=== PATIENT | male | born 1955 | race Caucasian/White ===

== ENCOUNTER 2025-04-01 10:26 | Outpatient (CLI) | payer MEDICARE, SELFPAY ==
[2025-04-01 12:06] LABS: CRP < 3.00 mg/L (0.0-3.0)
[2025-04-07 12:52] LABS: Immunoglobulin A 287 mg/dL (61-437); Pancreatic Elastase, Fecal 13 (>200)
== END 2025-04-01 23:59 | disposition home or self-care (01) ==
PROVIDERS: PCP Family Medicine
DX: R10.9 Unspecified abdominal pain (principal); R19.7 Diarrhea, unspecified
CPT/HCPCS: 36415; 82653; 82784; 83516; 83993; 86003; 86005; 86038; 86140; 86225; 86255

== ENCOUNTER 2025-05-21 12:30 | Day surgery (SDC) | payer MEDICARE, SELFPAY ==
[2025-05-21] VITALS (8 sets, daily range): BP systolic 115–144; BP diastolic 79–92; PULSE 60–81; RESP 14–16; TEMP 36.4–36.9; O2SAT 98–100; BMI 23.7
[2025-05-21] MEDS: Lactated Ringers 1,000 ML 15 ML IV (12:54)
--- NOTE | 2025-05-21 13:07 | PCM.PRE.AN2 ---
ASA Classification* ASA Classification ASA Classification: 3 Assessment & Plan Anesthesia* Anesthesia Assessment Anesthesia Assessment: Discussed sedation and/or anesthesia options, risks, benefits, and alternatives with patient/parents/legal guardian/POA. Questions invited. The patient/parents/legal guardian/POA seems to understand and agrees to proceed with anesthesia plan. Reviewed the physical assessment, medical history, allergy history and patient home medications list prior to surgery/procedure/anesthetic and documented any changes. Performed airway and anesthesia risk assessments. 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 When Was Last Pacemaker Check QUESTION #4 FULL TEXT: You/Your Family Experience fever (hyperthermia) with Anesthesia Last Oral Intake Last Oral intake: Last Oral Intake NPO since 06:00 05/21/25 12:47 Meds taken in AM with sips of Yes 05/21/25 12:47 water? Meds patient instructed to take am of surgery PONV PONV - digital advertising specialist: PONV - digital advertising specialist Female No 05/19/25 13:19 HX of Motion Sickness No 05/19/25 13:19 HX of N/V After Surgery No 05/19/25 13:19 Non-Smoker Yes 05/19/25 13:19 Duration of Surgery greater No 05/19/25 13:19 than 60 minutes Number of Risk Factors 1 05/19/25 13:19 PONV Score Low Risk 05/19/25 13:19 Height & Weight Height & Weight: Anesthesia: Height & Weight Height 5 ft 10 in 05/21/25 12:47 Weight: 75 kg 05/21/25 12:47 Body Mass Index (BMI) 23.7 05/21/25 12:47 Respiratory Assessment Respiratory Assessment - digital advertising specialist: Respiratory Tract Infection Hx - digital advertising specialist Hx Respiratory Tract Infection No 05/19/25 13:19 STOP Sleep Apnea STOP Sleep Apnea - digital advertising specialist: STOP Sleep Apnea - digital advertising specialist Hx Hypertension Yes: CONTROLLED ON MED 05/19/25 13:19 Hx Sleep Apnea No 05/19/25 13:19 CPAP BIPAP Do you snore loudly (louder No 05/19/25 13:19 than talking or can be heard Do you often feel tired/ No 05/19/25 13:19 fatigued/ sleepy during daytime? Has anyone observed you stop No 05/19/25 13:19 breathing during sleep? STOP Results Negative 05/19/25 13:19 QUESTION #5 FULL TEXT : Do you snore loudly (louder than talking or can be heard through closed doors)? 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 Specify any problems Hx of Preganancy in last 3 N/A 05/19/25 13:19 Months Nurse Filling Out Transfusion VCHRISTIN 05/19/25 13:19 & Questions: Date: 05/19/25 05/19/25 13:19 Time: 13:20 05/19/25 13:19 Patient unable to answer at this time (ie. confused, unrespo /Reproduction History /Reproductive History - digital advertising specialist: /Reproductive Hx- digital advertising specialist Hx Now No 05/19/25 13:19 Gestational Age (in weeks): EDC: Hx Hx Para Hx Section SAB No 05/19/25 13:19 Active Medications Active Medications: Current Medications Generic Name Dose Route Start Last Admin Trade Name Freq PRN Reason Stop Dose Admin Lactated Ringer's 1,000 mls @ 15 mls/hr 05/21/25 12:45 05/21/25 12:54 IV 15 mls/hr .Q48H ZIGGY Administration PFSH Medical History Wears glasses Former smoker History of pain when walking HTN (hypertension) Frequent headaches Home Medications ?Medication ?Instructions ?Recorded ?Last Taken ?Type hydrochlorothiazide 25 mg tablet 25 mg PO QAM 03/21/25 Unknown History basqmr-ddpwzopi-phdaazh 2 cap PO TID #300 caps 04/15/25 Unknown Rx 40,000-126,000-168,000 unit capsule, delay rel (Zenpep) dicyclomine 10 mg capsule 10 mg PO BID PRN abdominal 04/22/25 Unknown Rx discomfort #60 caps amlodipine 10 mg tablet 10 mg PO DAILY 05/19/25 05/21/25 06:00 History cyanocobalamin (vitamin B-12) 50 50 mcg PO DAILY 05/19/25 Unknown History mcg tablet (Vitamin B-12) cyclobenzaprine 5 mg tablet 10 mg PO TID PRN PRN pain 05/19/25 Unknown History Allergy/AdvReac Type Severity Reaction Status Date / Time No Known Allergies Allergy Verified 05/21/25 12:46 Family History Father Kidney disease Mother No problems noted. Surgical History Hx of right mastectomy Hx of appendectomy Social History Smoking Status: Former smoker alcohol intake: never Review of Systems (Anesthesia) ROS Narrative System reviewed and no additional complaints, except as documented.
--- NOTE | 2025-05-21 13:32 | HP.PCM_ITS ---
HPI - General General Date of Admission: 05/21/25 Date of Service: 05/21/25 Chief Complaint: Diarrhea HPI Narrative DORIS VASQUEZ, is a 70 M who presents for evaluation of diarrhea. 03.21.[address] [facility] regarding LUQ abdominal pains after eating with associated explosive diarrhea. He reports his yearly well check was in October of this year. He reported the abdominal pain to his PCP at that time. Since being informed of having a fatty liver, he has been committed to losing weight with healthier eating choices and increased activity. He reports weighing 214 LBS in October and was down to 190LBS by January. He states that in February alone he lost 25LBS, but weighed himself yesterday at home and is at 175LBS. 02.21.25 CT abd/pelvis IV contrast:bilateral renal cysts, nonobstructing right renal calculus, diverticulosis, degenerative changes of the spine. 02.28.25 RUQ US:probable fatty infiltration of liver, gallbladder sludge, CBD 3mm, right renal cyst. 03.06.25 HIDA:GB EF 67.6% His has celiac disease with EPI, so avoiding breads was the first food to be eliminated. For the last 3 to 4 months he has been experiencing an increased amount of discomfort to his LUQ of abdomen that is associated with watery and explosive diarrhea with urgency after eating dairy, beef, or fried foods. Other than sludge, GB testing has been negative and he denies nausea, epigastric, and RUQ abdominal pain. He describes the LUQ pain more as an ache or spasm on the inside toward his flank. He denies noting a difference when placed on omeprazole and Pepcid by PCP, so he stopped as never had heartburn or reflux complaints. He completely avoids junk foods, pop, tea, and candies. Is only taking HCTZ currently for HTN. And reports recent blood work done at [facility] in the last 30 days. He has done several Cologuard stool testings that were negative, he denies family history of colon cancer, denies hematochezia and melena. Differential diagnoses include: gas-bloat, IBS-D, EPI, food allergies, IBD. Discussed care plan with him and his present for exam. *Zenpep sent 8.02.02 elastase 13, fecal calprotectin 54, negative celiac endomysial IgA Ab/TTgIgA *RAST class I-peanuts, class 0/I-codfish,wheat,corn,soybean,mussel 04.22.25 OV He presents with his and a daughter for exam. He states that Zenpep is too expensive and has been taking extras from his 's prescription of the same enzyme. He reports improvement as far as reduction in the number of times he has loose watery stools per day, down to 1 or 2. His LUQ abdominal pain continues despite use of dicyclomine. He expresses concerns about getting hooked on dicyclomine, states the pain is present but tolerable. His sits quietly and is shaking her head no. She states that each time he has red meat, he will have sharp increase in pain and diarrhea. He has known this reaction to most things dairy, but appears to be more upset over not being able to eat red meat. He has not tried to consume any other type of red meat besides beef due to lack of access. Reviewed 14 panel RAST results with him. His daughter mentions that her mom had seen blood on the toilet seat once and expresses concern. His daughter also expresses concern regarding his weight loss. He currently weighs 174LBS, 1 pound less than last OV. He states It was probably from a cut on my leg. I never noticed any blood. He has never had a colonoscopy, has only done Cologuard stool testing. He further divulges family history regarding no colon cancer on his father's side. He states that he didn't get to know his mother until just before her . He is learning her medical history from his half brothers, and is not aware of colon cancer but other cancers are known. [facility] Medical History Wears glasses Former smoker History of pain when walking HTN (hypertension) Frequent headaches Home Medications ?Medication ?Instructions ?Recorded ?Last Taken ?Type hydrochlorothiazide 25 mg tablet 25 mg PO QAM 03/21/25 Unknown History mzmrsr-okfmtxvp-pqvmunc 2 cap PO TID #300 caps 04/15 Unknown Rx 40,000-126,000-168,000 unit capsule, delay rel (Zenpep) dicyclomine 10 mg capsule 10 mg PO BID PRN abdominal 0 04/22/25 Unknown Rx discomfort #60 caps amlodipine 10 mg tablet 10 mg PO DAILY 05/19/2505/12 06:00 History cyanocobalamin (vitamin B-12) 50 50 mcg PO DAILY 05/19 Unknown History mcg tablet (Vitamin B-12) cyclobenzaprine 5 mg tablet 10 mg PO TID PRN PRN pain 05/19/25 Unknown History Allergy/AdvReac Type Severity Reaction Status Date / Time No Known Allergies Allergy Verified 05/21/25 12:46 Family History Father Kidney disease Mother No problems noted. Surgical History Hx of right mastectomy Hx of appendectomy Social History Smoking Status: Former smoker alcohol intake: never ROS Constitutional Constitutional: Denies fatigue, fever(s), poor appetite, weight gain or weight loss Gastrointestinal Gastrointestinal: Denies belching, bloating, change in bowel habits, change in stool character, chewing difficulty, coffee ground emesis, constipation, cramping, diarrhea, dyspepsia, dysphagia, early satiety, excessive flatus, fecal incontinence, heartburn, hematemesis, hematochezia, hemorrhoids, loose stools, melena, nausea, odynophagia, rectal bleeding, tenesmus, vomiting or weight changes Vital Signs Vital Signs Vital Signs: 05/21/25 12:47 05/21/25 12:47 05/21/25 13:08 Temperature 98.5 F 98.5 F Temperature Source Temporal Pulse Rate 81 81 Respiratory Rate 16 16 Respiratory Pattern Normal Blood Pressure 144/84 H 144/84 H Blood Pressure Mean 104 Blood Pressure Source Monitor Blood Pressure Position Sitting Blood Pressure Location Left Arm Pulse Ox 100 100 Oxygen Delivery Method Room Air Room Air Weight Weight: 165 lb 5.547 oz Body Mass Index (BMI) 23.7 Physical Exam Const alert, oriented x3, no apparent distress and healthy appearing General Appearance: cooperative GI normal to inspection, nondistended, normoactive bowel sounds, soft to palpation, non-tender and non-distended Percussion: normal to percussion Rectal Exam: deferred Assessment & Plan Assessment/Plan (1) Exocrine pancreatic insufficiency: (2) Diarrhea: QUALIFIERS: Diarrhea type: unspecified type Qualified Code(s): R19.7 - Diarrhea, unspecified (3) Abdominal pain: QUALIFIERS: Abdominal location: left upper quadrant Qualified Code(s): R10.12 - Left upper quadrant pain PLAN: Assessment and Plan Assessment and Plan (1) Diarrhea: Status: Chronic Qualifiers: Diarrhea type: unspecified type Qualified Code(s): R19.7 - Diarrhea, unspecified (2) Abdominal pain: Status: Chronic Qualifiers: Abdominal location: left upper quadrant Qualified Code(s): R10.12 - Left upper quadrant pain (3) Exocrine pancreatic insufficiency: Status: Chronic Medications: Refilled dicyclomine 10 mg PO BID PRN 60 caps 1RF abdominal discomfort Plan DORIS VASQUEZ, is a 69 M who presents to the office today for FU. Discussed care plan with him and his family present for exam. I am comfortable with where his weight is at currently as he has been actively trying to lose it by eliminating pop, breads and sweets. 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 * schedule colonoscopy * attempt to add an additional smaller meal * avoid eating 3 hours before bedtime * apply for PAP with Zenpep * consider increasing dose to 3 caps with meal and 2 caps with snacks * office FU 2wks after colonoscopy
--- NOTE | 2025-05-21 14:00 | COLBX_PTH ---
PATIENT: DORIS VASQUEZ LOC: EN U#:[id number] AGE/SX: 70/M ROOM: RE05/21/[address]: Dr. Leonel Fitch DO : 1955 BED: DIS: 05/21/2025 SPEC #: [id number] RECD: 05/21/25 14:44 STATUS: COLLETTE REAnisha #: [id number] LULU: 05/21/25 14:[address]: Leonel Fitch DEPT: SURGICAL PATHOLOGY RECD BY: Ayo Guzman ENTERED: 05/21/25 15:38 SP TYPE: COLON BX OT DR: Dr. Edgar Robles MD Tissues: A - COLON BIOPSY B - Ileum, NOS C - Cecum, NOS D - COLON BIOPSY E - Sigmoid colon biopsy Procedures: Surgery Specimen Level IV HEADER OPERATION: Colonscopy with biopsies, polypectomy with cautery PRE-OP DIAGNOSIS: Diarrhea TISSUE SUBMITTED: A- Hepatic flexure polyp, B- Terminal ileum biopsy, C- Cecum biopsy, D- Random biopsy, E- Sigmoid colon polyp MICROSCOPIC DIAGNOSIS A. Hepatic flexure, polyp, biopsy: - Tubular adenoma. B. Terminal ileum, biopsy: - No specific pathologic change. C. Cecum, biopsy: - Mucosal lymphoid aggregate, favor reactive. D. Colon, random, biopsy: - No specific pathologic change. E. Sigmoid colon, polyp, biopsy: - Tubular adenoma. MICROSCOPIC DESCRIPTION Slides are reviewed. GROSS DESCRIPTION A. Received in fixative is one container labeled with the patient's name and designated Hepatic flexure polyp biopsy. The specimen consists of three irregular fragments of light cuba soft tissue that measure 0.2 to 0.3 cm. The specimen is totally submitted in one cassette. B. Received in fixative is one container labeled with the patient's name and designated Terminal ileum biopsy. The specimen consists of three irregular fragments of light cuba soft tissue that measure 0.4 to 0.8 cm. The specimen is totally submitted in one cassette. C. Received in fixative is one container labeled with the patient's name and designated Cecum biopsy. The specimen consists of two irregular fragments of light cuba soft tissue that measure 0.1 and 0.5 cm. The specimen is totally submitted in one cassette. D. Received in fixative is one container labeled with the patient's name and designated Random colon biopsy. The specimen consists of multiple irregular fragments of light cuba soft tissue that in aggregate measure 1.3 x 0.7 x 0.1 cm. The specimen is totally submitted in one cassette. E. Received in fixative is one container labeled with the patient's name and designated Sigmoid colon polyp. The specimen consists of four irregular fragments of light cuba soft tissue that measure 0.1 to 0.3 cm, admixed with flocculent material. The specimen is totally submitted in one cassette. [place] 05/21/2025 CPT:32686y9
--- NOTE | 2025-05-21 14:44 | OP.COLON_ITS ---
Patient Name: Ryan Henley Procedure Date: 05/21/2025 2:05 PM Date of : 1955 Age: 70 Procedure: Colonoscopy Indications: Clinically significant diarrhea of unexplained origin Providers: Leonel Fitch DO Referring MD: Leonel Fitch DO Medicines: Monitored Anesthesia Care Patient Profile: This is a 70 year old male. Refer to note in patient chart for documentation of history and physical. Last Colonoscopy: date unknown. Unable to locate last colonoscopy report. Complications: No immediate complications. Procedure: Pre-Anesthesia Assessment: - Prior to the procedure, a History and Physical was performed, and patient medications and allergies were reviewed. The patient is competent. The risks and benefits of the procedure and the sedation options and risks were discussed with the patient. All questions were answered and informed consent was obtained. Patient identification and proposed procedure were verified by the physician in the pre-procedure area. Mental Status Examination: alert and oriented. Airway Examination: normal oropharyngeal airway and neck mobility. Respiratory Examination: clear to auscultation. CV Examination: normal. Prophylactic Antibiotics: The patient does not require prophylactic antibiotics. Prior Anticoagulants: The patient has taken no anticoagulant or antiplatelet agents. ASA Grade Assessment: II - A patient with mild systemic disease. After reviewing the risks and benefits, the patient was deemed in satisfactory condition to undergo the procedure. The anesthesia plan was to use monitored anesthesia care (MAC). Immediately prior to administration of medications, the patient was re-assessed for adequacy to receive sedatives. The heart rate, respiratory rate, oxygen saturations, blood pressure, adequacy of pulmonary ventilation, and response to care were monitored throughout the procedure. The physical status of the patient was re-assessed after the procedure. After I obtained informed consent, the scope was passed under direct vision. Throughout the procedure, the patient's blood pressure, pulse, and oxygen saturations were monitored continuously. The Colonoscope was introduced through the anus and advanced to the terminal ileum. The colonoscopy was performed without difficulty. The patient tolerated the procedure well. The quality of the bowel preparation was adequate. The terminal ileum, ileocecal valve, appendiceal orifice, and rectum were photographed. Scope In: 2:13:46 PM Scope Withdrawal Time 0 hours 15 minutes 38 seconds Scope Out: 2:35:38 PM Total Procedure Duration Time 0 hours 21 minutes 52 seconds Findings: The perianal and digital rectal examinations were normal. A 5 mm polyp was found in the hepatic flexure. The polyp was sessile. The polyp was removed with a cold biopsy forceps. Resection and retrieval were complete. Verification of patient identification for the specimen was done. Estimated blood loss was minimal. A 10 mm polyp was found in the sigmoid colon. The polyp was sessile. The polyp was removed with a hot snare. Resection and retrieval were complete. Verification of patient identification for the specimen was done. Estimated blood loss was minimal. Multiple small and large-mouthed diverticula were found in the recto-sigmoid colon, sigmoid colon, descending colon, splenic flexure and transverse colon. An area of mildly congested mucosa was found in the sigmoid colon, at the splenic flexure, in the transverse colon and in the cecum. Biopsies for histology were taken with a cold forceps from the entire colon for evaluation of microscopic colitis. Verification of patient identification for the specimen was done. Estimated blood loss was minimal. Patchy mild inflammation characterized by congestion (edema) was found in the terminal ileum. Biopsies were taken with a cold forceps for histology. Verification of patient identification for the specimen was done. Estimated blood loss was minimal. Non-bleeding internal hemorrhoids were found during retroflexion. The hemorrhoids were Grade I (internal hemorrhoids that do not prolapse). Impression: - One 5 mm polyp at the hepatic flexure, removed with a cold biopsy forceps. Resected and retrieved. - One 10 mm polyp in the sigmoid colon, removed with a hot snare. Resected and retrieved. - Diverticulosis in the recto-sigmoid colon, in the sigmoid colon, in the descending colon, at the splenic flexure and in the transverse colon. - Congested mucosa in the sigmoid colon, at the splenic flexure, in the transverse colon and in the cecum. Biopsied. - Mild inflammation was found in the ileum secondary to ileitis. Biopsied. Recommendation: - Discharge patient to home. - Resume previous diet. - Continue present medications. - Await pathology results. - Repeat colonoscopy in 5 years for surveillance. Procedure Code(s): --- Professional --- 63302, Colonoscopy, flexible; with removal of tumor(s), polyp(s), or other lesion(s) by snare technique 22673, 59, Colonoscopy, flexible; with biopsy, single or multiple CPT copyright 2021 [employer]. All rights reserved. The codes documented in this report are preliminary and upon yard manager review may be revised to meet current compliance requirements. Leonel Fitch DO 05/21/2025 2:43:31 PM This report has been signed electronically. Number of Addenda: 0 Note Initiated On: 05/21/2025 2:05 PM
--- NOTE | 2025-05-21 14:44 | OP.PROVAT_ITS ---
05/21/2025 Edgar Robles Re : Colonoscopy procedure for Ryan Henley Diana Robles This procedure was performed on Wednesday, May 21, 2025. My impressions and recommendations are as follows: Impressions : - One 5 mm polyp at the hepatic flexure, removed with a cold biopsy forceps. Resected and retrieved. - One 10 mm polyp in the sigmoid colon, removed with a hot snare. Resected and retrieved. - Diverticulosis in the recto-sigmoid colon, in the sigmoid colon, in the descending colon, at the splenic flexure and in the transverse colon. - Congested mucosa in the sigmoid colon, at the splenic flexure, in the transverse colon and in the cecum. Biopsied. - Mild inflammation was found in the ileum secondary to ileitis. Biopsied. Recommendations : - Discharge patient to home. - Resume previous diet. - Continue present medications. - Await pathology results. - Repeat colonoscopy in 5 years for surveillance. My findings are described in the full procedure note, which is enclosed. If I can be of further assistance, please feel free to contact me at . Sincerely, Leonel Fitch, 05/21/2025 2:43:31 PM This report has been signed electronically.
--- NOTE | 2025-05-21 14:44 | PCM.POST.ANE ---
Anesthesia: Postop Eval I Current Vital Signs Temperature: 97.8 F Pulse Rate: 64 Blood Pressure: 115/92 Respiratory Rate: 16 Pulse Ox: 98 Oxygen Delivery Method: Room Air Assessment Airway patent: Yes Spontaneous unlabored respirations: Yes Mental status: Awake and Calm nausea: No Vomiting: No Anesthesia Complication: No Fluid Hydration Crystalloid volume administer (ml): 80 Total IV fluid infused: 80 Progress Note Anesthesia document: Postop Eval 1 completed: Yes
--- NOTE | 2025-05-21 15:22 | PCM.POSTANE2 ---
Anesthesia Postop Eval I Sum Postop Eval Completion status Anesthesia document: Postop Eval 1 completed: Yes Anesthesia Postop Eval I Summary Anesthesia Postop Eval I Summary: Anesthesia Postop Eval I: Assessment Summary Airway patent Yes 05/21/25 14:45 [email or web address] Spontaneous unlabored Yes 05/21/25 14:45 [email or web address] respirations Mental status Awake,Calm 05/21/25 14:45 [email or web address] nausea No 05/21/25 14:45 [email or web address] Vomiting No 05/21/25 14:45 [email or web address] Anesthesia Postop Eval I: Fluid Summary Crystalloid volume administer 80 05/21/25 14:45 [email or web address] (ml) Colloids volume administered ( ml) Blood Product volume administered (ml) Total IV fluid infused 80 05/21/25 14:45 [email or web address] Anesthesia Postop Eval I: Summary Notes Anesthesia Complication No 05/21/25 14:45 [email or web address] Anesthesia Complication Comment: Post-operative progress note Anesthesia: Postop Eval II Evaluation Mental status: Awake and Calm Pain Level: 1 nausea: No Vomiting: No Complications Anesthesia Complication: No
== END 2025-05-21 15:13 | disposition home or self-care (01) ==
LOC: EN 12:31 → AC 12:32
PROVIDERS: PCP Family Medicine; Referring Provider Family Medicine; Visit Provider Internal Medicine Gastroenterology
PROC: 0DJD8ZZ Inspection of Lower Intestinal Tract, Via Natural or Artificial Opening Endoscopic (ICD-10-PCS; CPT 45378; principal; 2025-05-21 13:55)
DX: D12.3 Benign neoplasm of transverse colon (principal); K63.5 Polyp of colon; Z87.891 Personal history of nicotine dependence; K64.0 First degree hemorrhoids; K57.30 Diverticulosis of large intestine without perforation or abscess without bleeding; I10 Essential (primary) hypertension; K86.81 Exocrine pancreatic insufficiency; D12.5 Benign neoplasm of sigmoid colon; Z79.899 Other long term (current) drug therapy
CPT/HCPCS: 45380; 45385; 88305; J2405